=== PATIENT | male | born 1980 | race American Indian/Alaskan Native ===

== ENCOUNTER 2018-10-17 23:09 | Emergency (ER) | payer SELFPAY ==
[2018-10-17 23:14] VITALS: BP 121/86
[2018-10-17] MEDS ORDERED: DUONEB *Not for PRN Use IH ONE (23:14)
[2018-10-18] MEDS ORDERED: DUONEB *Not for PRN Use IH ONE (00:18)
[2018-10-18] MEDS ORDERED: SOLU-Medrol IM ONE (00:18)
--- NOTE | 2018-10-18 00:19 | XRay Report ---
PROCEDURE: XR CHEST ROUTINE 2V TECHNIQUE: PA and lateral chest radiographs were obtained. HISTORY: wheezing and cough COMPARISONS: None. FINDINGS: Heart: Normal. Mediastinum/Vessels: Normal. Lungs/Pleural space: Mild left hilar infiltrate. No effusion or pneumothorax. Bony thorax: No acute osseous abnormality. IMPRESSION: Mild left hilar infiltrate. This document is electronically signed by Claudia Vora DO., October 18 2018 12:17:05 AM ET
[2018-10-18] MEDS ORDERED: ROCEPHIN IM ONE (01:40)
[2018-10-18] MEDS ORDERED: ZITHROMAX PO ONE (01:40)
[2018-10-18] MEDS ORDERED: XYLOCAINE 1% MPF 5 mL INFILTRATI ONE (01:40)
--- NOTE | 2018-10-18 02:35 | Emergency Department Report ---
- General Chief Complaint: Adult Asthma Stated Complaint: KIRSTEN Source: patient Mode of arrival: Ambulatory Limitations: No Limitations - History of Present Illness Initial Comments: Patient is a 38-year-old -Swiss male who is a former tobacco smoker and with a remote history of asthma with rare exacerbations and who presents to the ED with complaint of acute onset persistent nasal and sinus congestion, frontal sinus pressure, dry cough, shortness of breath, wheezing and body aches for the last 2 days. Patient denies dizziness, fever, chills, nausea, vomiting, chest pain, diaphoresis, headache, abdominal pain or diarrhea and hemoptysis. Patient states that he does not have any bronchodilators at home and therefore his symptoms got worse in the last 24 hours. MD Complaint: cough, rhinorrhea, nasal congestion, sinus pain, other (shortness of breath; wheezing) -: Sudden, days(s) (2) Severity: moderate Severity scale (0 -10): 5 Quality: aching Consistency: constant Improves With: nothing Worsens With: nothing Associated Symptoms: denies other symptoms, rhinorrhea, nasal congestion, cough, shortness of breath, hoarseness. denies: fever, chills, myalgias, diaphoresis, headache, stiff neck, chest pain, abdominal pain, nausea, vomiting, diarrhea, rash, right sweats, weight loss, epistaxis Treatments Prior to Arrival: none - Related Data Previous Rx's Medication Instructions Recorded Last Taken Type Prednisone 20 mg PO QDAY #5 tablet 03/21/13 Unknown Rx Hydroxyzine HCl [hydrOXYzine] 50 mg PO BID PRN #12 tablet 08/17/13 Unknown Rx Triamcinolone 0.1% [Kenalog 0.1% 1 applic TP BID #15 gram 08/17/13 Unknown Rx CREAM] predniSONE [Deltasone] 10 mg PO QDAY #5 tab 08/17/13 Unknown Rx Gentamicin 0.3% Ophth Soln 1 drops OP Q3H #1 bottle 11/13/14 Unknown Rx ALBUTEROL Inhaler (OR & NICU) 1 - 2 puff IH Q6H PRN #1 inh 10/18/18 Unknown Rx [ProAir HFA Inhaler] Amoxicillin/Potassium Clav 1 each PO Q12H #20 tablet 10/18/18 Unknown Rx [Augmentin 875-125 Tablet] Benzonatate [Tessalon Perles] 100 mg PO Q8HR #30 capsule 10/18/18 Unknown Rx predniSONE [Deltasone] 60 mg PO QDAY #15 tab 10/18/18 Unknown Rx Allergies Allergy/AdvReac Type Severity Reaction Status Date / Time aspirin Allergy Unknown Verified 02/08/13 15:49 hair dye Allergy Itching Uncoded 02/20/13 01:45 ED Review of Systems ROS: Stated complaint: KIRSTEN Other details as noted in HPI Comment: All other systems reviewed and negative Constitutional: denies: chills, fever Eyes: denies: eye pain, eye discharge, vision change ENT: congestion. denies: ear pain, throat pain Respiratory: cough, shortness of breath, wheezing Cardiovascular: denies: chest pain, palpitations Endocrine: no symptoms reported Gastrointestinal: denies: abdominal pain, nausea, diarrhea Genitourinary: denies: urgency, dysuria Musculoskeletal: denies: back pain, joint swelling, arthralgia Skin: denies: rash, lesions Neurological: denies: headache, weakness, paresthesias Psychiatric: denies: anxiety, depression Hematological/Lymphatic: denies: easy bleeding, easy bruising ED Past Medical Hx - Past Medical History Previous Medical History?: Yes Hx Heart Attack/AMI: Yes Hx Asthma: Yes - Surgical History Past Surgical History?: No - Social History Smoking Status: Never Smoker Substance Use Type: Marijuana - Medications Home Medications: Home Medications Medication Instructions Recorded Confirmed Last Taken Type Prednisone 20 mg PO QDAY #5 tablet 03/21/13 Unknown Rx Hydroxyzine HCl [hydrOXYzine] 50 mg PO BID PRN #12 tablet 08/17/13 Unknown Rx Triamcinolone 0.1% [Kenalog 0.1% 1 applic TP BID #15 gram 08/17/13 Unknown Rx CREAM] predniSONE [Deltasone] 10 mg PO QDAY #5 tab 08/17/13 Unknown Rx Gentamicin 0.3% Ophth Soln 1 drops OP Q3H #1 bottle 11/13/14 Unknown Rx ALBUTEROL Inhaler (OR & NICU) 1 - 2 puff IH Q6H PRN #1 inh 10/18/18 Unknown Rx [ProAir HFA Inhaler] Amoxicillin/Potassium Clav 1 each PO Q12H #20 tablet 10/18/18 Unknown Rx [Augmentin 875-125 Tablet] Benzonatate [Tessalon Perles] 100 mg PO Q8HR #30 capsule 10/18/18 Unknown Rx predniSONE [Deltasone] 60 mg PO QDAY #15 tab 10/18/18 Unknown Rx ED Physical Exam - General Limitations: No Limitations General appearance: alert, in no apparent distress - Head Head exam: Present: atraumatic, normocephalic, normal inspection - Eye Eye exam: Present: normal appearance, PERRL, EOMI. Absent: periorbital swelling, periorbital tenderness - ENT ENT exam: Present: normal exam, normal orophraynx, mucous membranes moist, TM's normal bilaterally, normal external ear exam - Neck Neck exam: Present: normal inspection, full ROM. Absent: tenderness, meningismus, lymphadenopathy, thyromegaly - Respiratory Respiratory exam: Present: wheezes (diffuse coarse wheezes throughout the lung). Absent: respiratory distress, rales, rhonchi, stridor, chest wall tenderness, accessory muscle use, decreased breath sounds, prolonged expiratory - Cardiovascular Cardiovascular Exam: Present: regular rate, normal rhythm, normal heart sounds. Absent: systolic murmur, diastolic murmur, rubs, gallop - GI/Abdominal GI/Abdominal exam: Present: soft, normal bowel sounds. Absent: tenderness, guarding, rebound, hyperactive bowel sounds, hypoactive bowel sounds, organomegaly - Rectal Rectal exam: Present: deferred - Extremities Exam Extremities exam: Present: normal inspection, full ROM, normal capillary refill - Back Exam Back exam: Present: normal inspection, full ROM. Absent: tenderness, CVA tenderness (R), CVA tenderness (L), muscle spasm, paraspinal tenderness - Neurological Exam Neurological exam: Present: alert, oriented X3, CN II-XII intact, normal gait, reflexes normal - Psychiatric Psychiatric exam: Present: normal affect, normal mood - Skin Skin exam: Present: warm, dry, intact, normal color. Absent: rash ED Course Vital Signs 10/17/18 23:11 Temperature 99.5 F Pulse Rate 83 Respiratory 16 Rate Blood Pressure 121/86 [Left] O2 Sat by Pulse 100 Oximetry - Reevaluation(s) Reevaluation #1: 10/18/18 02:53 Patient is alert and oriented 3 and is not in any respiratory distress, and the vital signs are stable. Patient received DuoNeb treatment twice in the ED, also received Solu-Medrol 125 mg intramuscular injection. Chest x-ray shows mild left hilar infiltrate. Patient was treated again in the ED with Rocephin 1 g intramuscular injection and azithromycin 500 mg by mouth 1. On reevaluation, the patient's wheezing has significantly improved, and patient's oxygen saturation is 100% in room air. Patient was discharged home on antibiotics, albuterol inhaler, Tessalon Perles and prednisone, and advised to follow-up with his primary care physician in 5-7 days for reevaluation, or retur n to the ED immediately if symptoms get worse. ED Medical Decision Making - Radiology Data Radiology results: report reviewed, image reviewed Chest x-ray: Shows a mild left Hilar infiltrate - Medical Decision Making Patient is alert and oriented 3 and is not in any respiratory distress, and the vital signs are stable. Patient received DuoNeb treatment twice in the ED, also received Solu-Medrol 125 mg intramuscular injection. Chest x-ray shows mild left hilar infiltrate. Patient was treated again in the ED with Rocephin 1 g intramuscular injection and azithromycin 500 mg by mouth 1. On reevaluation, the patient's wheezing has significantly improved, and patient's oxygen saturation is 100% in room air. Patient was discharged home on antibiotics, albuterol inhaler, Tessalon Perles and prednisone, and advised to follow-up with his primary care physician in 5-7 days for reevaluation, or retu rn to the ED immediately if symptoms get worse. - Differential Diagnosis acute URI; Acute asthmatic bronchitis; Pneumonia Critical care attestation.: If time is entered above; I have spent that time in minutes in the direct care of this critically ill patient, excluding procedure time. ED Disposition Clinical Impression: Acute upper respiratory infection, Shortness of breath Asthmatic bronchitis with exacerbation Qualifiers: Asthma severity: mild Asthma persistence: intermittent Qualified Code(s): J45.21 - Mild intermittent asthma with (acute) exacerbation Community acquired pneumonia Qualifiers: Laterality: left Lung location: lower lobe of lung Qualified Code(s): J18.1 - Lobar pneumonia, unspecified organism Disposition: TO HOME OR SELFCARE Is pt being admited?: No Does the pt Need Aspirin: No Condition: Stable Instructions: Asthma (ED), Community-acquired Pneumonia (ED), Dyspnea (ED), Upper Respiratory Infection (ED) Additional Instructions: Take medications with food, drink plenty of fluids and follow up with your primary care physician in 5-7 days days for reevaluation. Return to the ED immediately if symptoms get worse. Prescriptions: Amoxicillin/Potassium Clav [Augmentin 875-125 Tablet] 1 each PO Q12H #20 tablet predniSONE [Deltasone] 60 mg PO QDAY #15 tab ALBUTEROL Inhaler (OR & NICU) [ProAir HFA Inhaler] 1 - 2 puff IH Q6H PRN #1 inh PRN Reason: Shortness Of Breath Benzonatate [Tessalon Perles] 100 mg PO Q8HR #30 capsule Referrals: VERONA BARTHOLOMEW MD [Primary Care Provider] - 3-5 Days Forms: Work/School Release Form(ED) Time of Disposition: 02:45 Print Language: BAHAMIAN
== END 2018-10-18 03:36 | disposition home or self-care (01) ==
LOC: ED 23:09
DX: J45.21 Mild intermittent asthma with (acute) exacerbation (principal); J18.1 Lobar pneumonia, unspecified organism; J06.9 Acute upper respiratory infection, unspecified
CPT/HCPCS: 71046; 94640; 96372; 99283; J2930

== ENCOUNTER 2020-09-21 22:26 | Emergency (ER) | payer SELFPAY ==
[2020-09-21 22:51] VITALS: BP 112/77
--- NOTE | 2020-09-22 01:07 | Emergency Department Report ---
ED General Adult HPI - General Chief complaint: Extremity Problem,Nontraumatic Stated complaint: LEFT FINGER INJURY/SWELLING Time Seen by Provider: 09/22/20 01:01 Source: patient Mode of arrival: Ambulatory Limitations: No Limitations - History of Present Illness Initial comments: Patient presents with complaints of left ring finger pain and swelling x3 days. He admits to being a nail biter. He rates his pain as a 8/10 in severity. He denies any numbness or difficulty moving his finger. No fever/chills/sweats per patient. -: Sudden - Related Data Previous Rx's Medication Instructions Recorded Last Taken Type Prednisone 20 mg PO QDAY #5 tablet 03/21/13 Unknown Rx Hydroxyzine HCl [hydrOXYzine] 50 mg PO BID PRN #12 tablet 08/17/13 Unknown Rx Triamcinolone 0.1% [Kenalog 0.1% 1 applic TP BID #15 gram 08/17/13 Unknown Rx CREAM] predniSONE 10 mg PO QDAY #5 tab 08/17/13 Unknown Rx Gentamicin 0.3% Ophth Soln 1 drops OP Q3H #1 bottle 11/13/14 Unknown Rx Albuterol Mdi (or & Nicu Only) 1 - 2 puff IH Q6H PRN #1 inh 10/18/18 Unknown Rx [ProAir HFA Inhaler] Amoxicillin/Potassium Clav 1 each PO Q12H #20 tablet 10/18/18 Unknown Rx [Augmentin 875-125 Tablet] Benzonatate [Tessalon Perles] 100 mg PO Q8HR #30 capsule 10/18/18 Unknown Rx predniSONE [Deltasone] 60 mg PO QDAY #15 tab 10/18/18 Unknown Rx Amoxicillin/Potassium Clav 1 each PO BID 10 Days #20 tablet 09/22/20 Unknown Rx [Augmentin 875-125 Tablet] Mupirocin [Bactroban 2%] 1 applic TP TID 10 Days #1 tube 09/22/20 Unknown Rx traMADoL [Ultram 50 MG tab] 50 mg PO Q6HR PRN #10 tablet 09/22/20 Unknown Rx Allergies Allergy/AdvReac Type Severity Reaction Status Date / Time aspirin Allergy Unknown Verified 02/08/13 15:49 hair dye Allergy Itching Uncoded 02/20/13 01:45 ED Review of Systems ROS: Stated complaint: LEFT FINGER INJURY/SWELLING Other details as noted in HPI Constitutional: see HPI Musculoskeletal: denies: arthralgia Skin: denies: change in color Neurological: denies: numbness, paresthesias ED Past Medical Hx - Past Medical History Previous Medical History?: Yes Hx Heart Attack/AMI: Yes Hx Asthma: Yes - Surgical History Past Surgical History?: No - Social History Smoking Status: Current Every Day Smoker Substance Use Type: Alcohol, Marijuana - Medications Home Medications: Home Medications Medication Instructions Recorded Confirmed Last Taken Type Prednisone 20 mg PO QDAY #5 tablet 03/21/13 Unknown Rx Hydroxyzine HCl [hydrOXYzine] 50 mg PO BID PRN #12 tablet 08/17/13 Unknown Rx Triamcinolone 0.1% [Kenalog 0.1% 1 applic TP BID #15 gram 08/17/13 Unknown Rx CREAM] predniSONE 10 mg PO QDAY #5 tab 08/17/13 Unknown Rx Gentamicin 0.3% Ophth Soln 1 drops OP Q3H #1 bottle 11/13/14 Unknown Rx Albuterol Mdi (or & Nicu Only) 1 - 2 puff IH Q6H PRN #1 inh 10/18/18 Unknown Rx [ProAir HFA Inhaler] Amoxicillin/Potassium Clav 1 each PO Q12H #20 tablet 10/18/18 Unknown Rx [Augmentin 875-125 Tablet] Benzonatate [Tessalon Perles] 100 mg PO Q8HR #30 capsule 10/18/18 Unknown Rx predniSONE [Deltasone] 60 mg PO QDAY #15 tab 10/18/18 Unknown Rx Amoxicillin/Potassium Clav 1 each PO BID 10 Days #20 tablet 09/22/20 Unknown Rx [Augmentin 875-125 Tablet] Mupirocin [Bactroban 2%] 1 applic TP TID 10 Days #1 tube 09/22/20 Unknown Rx traMADoL [Ultram 50 MG tab] 50 mg PO Q6HR PRN #10 tablet 09/22/20 Unknown Rx ED Physical Exam - General Limitations: No Limitations General appearance: alert, in no apparent distress - Head Head exam: Present: atraumatic, normocephalic - Eye Eye exam: Present: normal appearance - Respiratory Respiratory exam: Absent: respiratory distress - Cardiovascular Cardiovascular Exam: Present: regular rate - Extremities Exam Extremities exam: Present: other (Paronychia noted to distal left ring finger with tenderness to palpation) - Neurological Exam Neurological exam: Present: alert, oriented X3 - Psychiatric Psychiatric exam: Present: normal affect, normal mood - Skin Skin exam: Present: warm, dry, intact, normal color. Absent: rash ED Course Vital Signs 09/21/20 09/22/20 22:48 01:39 Temperature 99.0 F Pulse Rate 72 Respiratory 18 18 Rate Blood Pressure 112/77 O2 Sat by Pulse 96 98 Oximetry - I & D Finger Type of Procedure: Simple Site: Left ring finger Blade Size: 11 I & D Procedure: betadine prep, sterile drapes applied, sterile dressing applied Progress: 5 cc of lidocaine 1% used anesthetize finger via digital block. Minimal bleeding occurred. Copious purulent drainage obtained and a sample was sent for wound culture. Patient tolerated procedure well without any immediate c omplications. He has normal range of motion and perfusion post procedure ED Medical Decision Making - Medical Decision Making Patient treated for paronychia via incision and drainage and tolerated procedure well. Will discharge home on Augmentin and Bactroban. Recommend follow-up with primary care in 3 to 5 days. Discussed wound care and signs and symptoms that should prompt immediate return to the emergency department in detail with patient who verbalized understanding. He is well-appearing, his vitals are within normal limits, he is stable for discharge home. Critical care attestation.: If time is entered above; I have spent that time in minutes in the direct care of this critically ill patient, excluding procedure time. ED Disposition Clinical Impression: Paronychia of finger Disposition: [id number] TO HOME OR SELFCARE Is pt being admited?: No Condition: Stable Instructions: Paronychia, Incision and Drainage Prescriptions: Amoxicillin/Potassium Clav [Augmentin 875-125 Tablet] 1 each PO BID 10 Days #20 tablet Mupirocin [Bactroban 2%] 1 applic TP TID 10 Days #1 tube traMADoL [Ultram 50 MG tab] 50 mg PO Q6HR PRN #10 tablet PRN Reason: Pain Referrals: [facility] [Provider Group] - 3-5 Days
== END 2020-09-22 01:30 | disposition home or self-care (01) ==
LOC: ED 22:26
DX: L03.012 Cellulitis of left finger (principal); I25.2 Old myocardial infarction; J45.909 Unspecified asthma, uncomplicated; F17.200 Nicotine dependence, unspecified, uncomplicated; F12.90 Cannabis use, unspecified, uncomplicated; Z88.8 Allergy status to other drugs, medicaments and biological substances; Z79.899 Other long term (current) drug therapy
CPT/HCPCS: 87076; 87116; 87186